=== PATIENT | female | born 2000 | race Caucasian/White ===

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

== ENCOUNTER 2021-03-19 17:16 | Emergency (ER) | payer OTHER ==
[~2021-03-19] VITALS: Ht 157.5 cm; Wt 61.5 kg
[2021-03-19 17:16] VITALS: BP 130/72
== END 2021-03-19 19:54 | disposition left against medical advice (07) ==
LOC: M ED 17:16
DX: Z53.29 Procedure and treatment not carried out because of patient's decision for other reasons (principal)

== ENCOUNTER 2021-06-28 10:41 | Emergency (ER) | payer OTHER ==
[~2021-06-28] VITALS: Ht 157.5 cm; Wt 62.6 kg
[2021-06-28] MEDS ORDERED: NAPR500T6 PO (10:47)
[2021-06-28 12:17] LABS: HEMATOCRIT 40.8 % (36.0-47.0); HEMOGLOBIN 13.7 g/dl (12.0-15.5); MEAN CORPUSCULAR HEMOGLOBIN 29.8 pg (27.0-33.0); MEAN CORPUSCULAR HGB CONC 33.6 g/dl (32.0-36.5); MEAN CORPUSCULAR VOLUME 88.9 fl (80.0-96.0); PLATELET COUNT, AUTOMATED 270 10^3/uL (150-450); RED BLOOD COUNT 4.59 10^6/uL (4.00-5.40)
[2021-06-28] MEDS ORDERED: KETOROLAC TROMETHAMINE 10 MG TAB PO ONE (12:25)
[2021-06-28 12:32] LABS: HCG, SERUM QUALITATIVE NEGATIVE (NEGATIVE)
[2021-06-28 12:59] LABS: BLOOD UREA NITROGEN 12 MG/DL (7-18); CHLORIDE LEVEL 112 MEQ/L (98-107); CREATININE FOR GFR 0.93 MG/DL (0.55-1.30); GLUCOSE, FASTING 88 MG/DL (70-100); POTASSIUM SERUM 4.1 MEQ/L (3.5-5.1); SODIUM LEVEL 143 MEQ/L (136-145)
[2021-06-28 13:00] LABS: CALCIUM LEVEL 9.3 MG/DL (8.5-10.1); CARBON DIOXIDE LEVEL 26 mmol/L (20-29)
[2021-06-28] MEDS ORDERED: ISOVUE-370 76% 100ML VIAL As Ordered ONE (13:53)
[2021-06-28 14:58] LABS: GC DNA AMPLIFICATION NEGATIVE (NEGATIVE)
[2021-06-28 15:46] VITALS: BP 115/62
[2021-06-28] MEDS ORDERED: KETO10TAB PO (15:52)
== END 2021-06-28 16:06 | disposition home or self-care (01) ==
LOC: M ED 10:41
DX: N83.201 Unspecified ovarian cyst, right side (principal)
CPT/HCPCS: 36415; 74177; 76830; 76856; 80048; 81001; 84703; 85027; 86850; 86900; 86901; 87210; 87661; 93976; 99284; Q9967

== ENCOUNTER 2021-07-18 11:08 | Emergency (ER) | payer OTHER ==
[~2021-07-18] VITALS: Ht 157.5 cm; Wt 63.1 kg
[2021-07-18 11:08] VITALS: BP 125/68
[~2021-07-18 11:08] MED LIST: KETO10TAB PO; NAPR500T6 PO
[2021-07-18] MEDS ORDERED: NAPR-837 PO (12:47)
== END 2021-07-18 13:13 | disposition home or self-care (01) ==
LOC: M ED 11:08
DX: M70.71 Other bursitis of hip, right hip (principal)

== ENCOUNTER 2021-11-15 19:53 | Emergency (ER) | payer OTHER ==
[~2021-11-15] VITALS: Ht 154.9 cm; Wt 61.6 kg
[~2021-11-15 19:53] MED LIST changes: +NAPR-837 PO
[2021-11-15 19:55] VITALS: BP 160/83
[2021-11-15] MEDS ORDERED: FLUO40CA PO (20:11)
[2021-11-15] MEDS ORDERED: ACETAMINOPHEN TAB 650MG DOSE (2X325MG) PO ONE (20:25)
== END 2021-11-15 20:35 | disposition left against medical advice (07) ==
LOC: M ED 19:53
DX: Z53.29 Procedure and treatment not carried out because of patient's decision for other reasons (principal)

== ENCOUNTER 2022-02-06 12:26 | Emergency (ER) | payer OTHER ==
[~2022-02-06] VITALS: Ht 157.5 cm; Wt 59.0 kg
[~2022-02-06 12:26] MED LIST changes: +FLUO40CA PO
[2022-02-06 13:06] LABS: BASO % 0.4 % (0.0-1.0); EOS % 0.2 % (0.0-3.0); HEMATOCRIT 39.3 % (36.0-47.0); HEMOGLOBIN 13.3 g/dl (12.0-15.5); LYMPH # 1.7 10^3/uL (1.5-5.0); LYMPH % 16.4 % (24.0-44.0); MEAN CORPUSCULAR HEMOGLOBIN 29.6 pg (27.0-33.0); MEAN CORPUSCULAR HGB CONC 33.8 g/dl (32.0-36.5); MEAN CORPUSCULAR VOLUME 87.3 fl (80.0-96.0); MONO # 0.4 10^3/uL (0.0-0.8); MONO % 3.9 % (2.0-8.0); NEUTROPHILS # 8.3 10^3/uL (1.5-8.5); NEUTROPHILS % 78.6 % (36.0-66.0); PLATELET COUNT, AUTOMATED 267 10^3/uL (150-450); WHITE BLOOD COUNT 10.5 10^3/uL (4.0-10.0)
[2022-02-06 13:36] LABS: HCG, SERUM QUALITATIVE NEGATIVE (NEGATIVE)
[2022-02-06 13:52] LABS: BLOOD UREA NITROGEN 8 MG/DL (7-18); CALCIUM LEVEL 9.8 MG/DL (8.5-10.1); CARBON DIOXIDE LEVEL 23 MEQ/L (21-32); CHLORIDE LEVEL 109 MEQ/L (98-107); CREATININE FOR GFR 1.04 MG/DL (0.55-1.30); FREE T4 1.09 NG/DL (0.78-1.33); GLUCOSE, FASTING 100 MG/DL (70-100); MAGNESIUM LEVEL 2.3 MG/DL (1.8-2.4); POTASSIUM SERUM 3.9 MEQ/L (3.5-5.1); SODIUM LEVEL 140 MEQ/L (136-145)
[2022-02-06 15:38] LABS: AMPHETAMINES LEVEL URINE NEGATIVE (NEGATIVE); BARBITURATES URINE NEGATIVE (NEGATIVE); BENZODIAZEPINES URINE NEGATIVE (NEGATIVE); CANNABINOIDS URINE POSITIVE (NEGATIVE); COCAINE METABOLITE URINE NEGATIVE (NEGATIVE); METHADONE URINE NEGATIVE (NEGATIVE); OPIATES URINE NEGATIVE (NEGATIVE); PHENCYCLIDINE URINE NEGATIVE (NEGATIVE)
[2022-02-06] MEDS ORDERED: ACETAMINOPHEN TAB 650MG DOSE (2X325MG) PO ONE (16:05)
[2022-02-06 17:49] VITALS: BP 130/64
== END 2022-02-06 18:08 | disposition home or self-care (01) ==
LOC: EDBD 12:26 → M ED 12:26
DX: R55 Syncope and collapse (principal); E16.2 Hypoglycemia, unspecified; F41.9 Anxiety disorder, unspecified

== ENCOUNTER 2022-02-18 15:43 | Emergency (ER) | payer OTHER ==
[~2022-02-18] VITALS: Ht 157.5 cm; Wt 57.9 kg
[2022-02-18 15:44] VITALS: BP 139/75
[2022-02-18] MEDS ORDERED: ACET-683 PO (16:13)
== END 2022-02-18 16:40 | disposition left against medical advice (07) ==
LOC: M ED 15:43
DX: Z53.21 Procedure and treatment not carried out due to patient leaving prior to being seen by health care provider (principal)

== ENCOUNTER 2022-02-19 09:56 | Emergency (ER) | payer OTHER ==
[~2022-02-19] VITALS: Ht 157.5 cm; Wt 56.8 kg
[~2022-02-19 09:56] MED LIST changes: +ACET-683 PO
[2022-02-19 09:57] VITALS: BP 125/64
== END 2022-02-19 15:28 | disposition left against medical advice (07) ==
LOC: M ED 09:56
DX: Z53.21 Procedure and treatment not carried out due to patient leaving prior to being seen by health care provider (principal)

== ENCOUNTER 2022-03-12 19:46 | Emergency (ER) | payer OTHER ==
[~2022-03-12] VITALS: Ht 157.5 cm; Wt 60.4 kg
[2022-03-12] MEDS ORDERED: NS 1,000 ML IV ONE (21:55)
[2022-03-12] MEDS ORDERED: ONDANSETRON 4MG 2ML VIAL IV ONE (21:55)
[2022-03-12] MEDS ORDERED: MORPHINE 4 MG/ML 1ML VIAL/SYRINGE IV ONE (22:00)
[2022-03-12 22:06] LABS: BASO % 0.4 % (0.0-1.0); EOS # 0.1 10^3/uL (0.0-0.5); EOS % 1.5 % (0.0-3.0); HEMATOCRIT 36.6 % (36.0-47.0); LYMPH # 3.2 10^3/uL (1.5-5.0); LYMPH % 37.6 % (24.0-44.0); MEAN CORPUSCULAR HEMOGLOBIN 28.8 pg (27.0-33.0); MEAN CORPUSCULAR HGB CONC 32.8 g/dl (32.0-36.5); MONO # 0.6 10^3/uL (0.0-0.8); MONO % 6.9 % (2.0-8.0); NEUTROPHILS # 4.5 10^3/uL (1.5-8.5); NEUTROPHILS % 53.2 % (36.0-66.0); PLATELET COUNT, AUTOMATED 247 10^3/uL (150-450); RED BLOOD COUNT 4.16 10^6/uL (4.00-5.40); WHITE BLOOD COUNT 8.5 10^3/uL (4.0-10.0)
[2022-03-12 22:38] LABS: ALT/SGPT 18 U/L (12-78); BILIRUBIN,DIRECT 0.2 MG/DL (0.0-0.2); BILIRUBIN,TOTAL 0.7 MG/DL (0.2-1.0); BLOOD UREA NITROGEN 10 MG/DL (7-18); CALCIUM LEVEL 9.6 MG/DL (8.5-10.1); CARBON DIOXIDE LEVEL 25 MEQ/L (21-32); CHLORIDE LEVEL 108 MEQ/L (98-107); CREATININE FOR GFR 0.75 MG/DL (0.55-1.30); GLUCOSE, FASTING 95 MG/DL (70-100); HCG, SERUM QUANTITATIVE < 1.0 MIU/ML; LIPASE 72 U/L (73-393); POTASSIUM SERUM 3.5 MEQ/L (3.5-5.1); SODIUM LEVEL 138 MEQ/L (136-145); TOTAL PROTEIN 6.9 GM/DL (6.4-8.2)
[2022-03-12] MEDS ORDERED: ISOVUE-370 76% 100ML VIAL As Ordered ONE (22:53)
[2022-03-13] MEDS ORDERED: MIRA3350 PO (00:20)
[2022-03-13 00:39] VITALS: BP 120/62
== END 2022-03-13 00:40 | disposition home or self-care (01) ==
LOC: M ED 19:46
DX: K59.00 Constipation, unspecified (principal); G40.89 Other seizures; F41.9 Anxiety disorder, unspecified; Z87.42 Personal history of other diseases of the female genital tract; Z88.1 Allergy status to other antibiotic agents; Z88.6 Allergy status to analgesic agent; Z79.899 Other long term (current) drug therapy
CPT/HCPCS: 74177; 76705; 80048; 80076; 83690; 84702; 85025; 96374; 96375; 99284; J2270; J2405

== ENCOUNTER 2022-03-19 17:18 | Emergency (ER) | payer OTHER ==
[~2022-03-19] VITALS: Ht 157.5 cm; Wt 60.3 kg
[~2022-03-19 17:18] MED LIST changes: +MIRA3350 PO
[2022-03-19 18:50] LABS: HEMOGLOBIN 14.3 g/dl (12.0-15.5); MEAN CORPUSCULAR HGB CONC 33.3 g/dl (32.0-36.5); MEAN CORPUSCULAR VOLUME 87.2 fl (80.0-96.0); PLATELET COUNT, AUTOMATED 319 10^3/uL (150-450); RED BLOOD COUNT 4.93 10^6/uL (4.00-5.40); WHITE BLOOD COUNT 7.3 10^3/uL (4.0-10.0)
[2022-03-19 19:04] LABS: HCG, SERUM QUALITATIVE NEGATIVE (NEGATIVE)
[2022-03-19 19:14] LABS: ALBUMIN 4.2 G/DL (3.2-5.2); ALT/SGPT 13 U/L (7.0-40); BLOOD UREA NITROGEN 6 MG/DL (9-23); CARBON DIOXIDE LEVEL 25 MMOL/L (20-31); CHLORIDE LEVEL 104 MMOL/L (98-107); CREATININE FOR GFR 0.77 MG/DL (0.55-1.30); GLUCOSE, FASTING 89 MG/DL (60-100); POTASSIUM SERUM 4.6 MMOL/L (3.5-5.1); SODIUM LEVEL 140 MMOL/L (136-145); TOTAL PROTEIN 7.3 G/DL (5.7-8.2)
[2022-03-19] MEDS ORDERED: KEPP250T5 PO (20:43)
[2022-03-19] MEDS ORDERED: levETIRAcetam 250MG TABLET (KEPPRA) PO ONE (20:45)
[2022-03-19 20:52] VITALS: BP 124/86
== END 2022-03-19 20:55 | disposition home or self-care (01) ==
LOC: M ED 17:18
DX: G40.909 Epilepsy, unspecified, not intractable, without status epilepticus (principal); Z79.899 Other long term (current) drug therapy; Z88.1 Allergy status to other antibiotic agents; Z88.8 Allergy status to other drugs, medicaments and biological substances